=== PATIENT | female | born 1990 | race American Indian/Alaskan Native ===

== ENCOUNTER 2017-12-13 07:25 | Emergency (ER) | payer MEDICAID, OTHER ==
[2017-12-13 07:40] VITALS: BP 115/70
[2017-12-13] MEDS ORDERED: ASPIRIN PO ONE (07:40)
[2017-12-13 08:24] LABS: BUN/Creatinine Ratio 17; Blood Urea Nitrogen 12 mg/dL (7-17); Calcium 9.8 mg/dL (8.4-10.2); Hemolysis Index 7
[2017-12-13 08:37] LABS: Basophils # (Auto) 0.2 K/mm3 (0.0-0.1); Basophils % (Auto) 1.1 % (0.0-1.8); Eosinophils # (Auto) 0.1 K/mm3 (0.0-0.4); Eosinophils % (Auto) 0.8 % (0.0-4.3); Hematocrit 36.9 % (30.3-42.9); Hemoglobin 11.8 gm/dl (10.1-14.3); Lymphocytes % (Auto) 14.6 % (13.4-35.0); Mean Corpuscular HGB Conc 32 % (30-34); Mean Corpuscular Hemoglobin 29 pg (28-32); Mean Corpuscular Volume 90 fl (79-97); Monocytes % (Auto) 7.5 % (0.0-7.3); Platelet Count 311 K/mm3 (140-440); Red Blood Count 4.11 M/mm3 (3.65-5.03); Red Cell Distribution Width 13.4 % (13.2-15.2)
--- NOTE | 2017-12-13 10:50 | Emergency Department Report ---
ED Chest Pain HPI - General Chief Complaint: Chest Pain Stated Complaint: CHEST PAIN Time Seen by Provider: 12/13/17 10:39 Source: patient Mode of arrival: Ambulatory Limitations: No Limitations - History of Present Illness Initial Comments: Ms. Barron is a 27 yo who is 7 weeks . Estimated due date 2018. She has had 2 days of intermittent chest pain and right-sided with shortness of breath. Pain is worse when she takes a deep breath. She has taken the progesterone for the past several weeks due to lower levels. Clementina seems to be intermittent. Denies cough. Denies fever. Denies leg pain. MD Complaint: chest pain -: Gradual, days(s) (2) Onset: during rest, other (worse with inspiration ) Pain Location: right chest Pain Radiation: none Severity: mild Quality: sharp Consistency: intermittent - Related Data Home Medications Medication Instructions Recorded Confirmed Last Taken Albuterol Sulfate [Ventolin HFA] 2 puff IH Q4H PRN 04/06/14 04/15/14 04/06/14 Loratadine [Claritin] 10 mg PO DAILY 04/06/14 04/15/14 04/06/14 Previous Rx's Medication Instructions Recorded Last Taken Type Colchicine [Colcrys] 0.6 mg PO BID #20 tab 04/17/14 Unknown Rx Allergies Allergy/AdvReac Type Severity Reaction Status Date / Time No Known Allergies Allergy Verified 04/06/14 20:29 Heart Score - HEART Score History: Slightly suspicious EKG: Normal Age: < 45 Risk factors: No known risk factors Troponin: < normal limit HEART Score: 0 ED Review of Systems ROS: Stated complaint: CHEST PAIN Other details as noted in HPI Comment: All other systems reviewed and negative Constitutional: denies: chills, fever Eyes: denies: eye pain, eye discharge, vision change ENT: denies: ear pain, throat pain Respiratory: denies: cough, shortness of breath, wheezing Cardiovascular: chest pain. denies: palpitations Endocrine: no symptoms reported Gastrointestinal: denies: abdominal pain, nausea, diarrhea Musculoskeletal: denies: back pain Neurological: denies: headache ED Past Medical Hx - Past Medical History Previous Medical History?: Yes Hx Congestive Heart Failure: No Hx Diabetes: No Hx Asthma: No Hx COPD: No Additional medical history: pericarditis, childbirth, ectopic - Surgical History Past Surgical History?: Yes Additional Surgical History: csection - Social History Smoking Status: Never Smoker Substance Use Type: Prescribed - Medications Home Medications: Home Medications Medication Instructions Recorded Confirmed Last Taken Type Albuterol Sulfate [Ventolin HFA] 2 puff IH Q4H PRN 04/06/14 04/15/14 04/06/14 History Loratadine [Claritin] 10 mg PO DAILY 04/06/14 04/15/14 04/06/14 History Colchicine [Colcrys] 0.6 mg PO BID #20 tab 04/17/14 Unknown Rx ED Physical Exam - General Limitations: No Limitations General appearance: alert, in no apparent distress - Head Head exam: Present: atraumatic, normocephalic - Eye Eye exam: Present: normal appearance - ENT ENT exam: Present: mucous membranes moist - Neck Neck exam: Present: normal inspection. Absent: tenderness, meningismus - Respiratory Respiratory exam: Present: normal lung sounds bilaterally. Absent: respiratory distress, wheezes, rales, rhonchi - Cardiovascular Cardiovascular Exam: Present: regular rate, normal rhythm, normal heart sounds. Absent: systolic murmur, diastolic murmur, rubs, gallop - GI/Abdominal GI/Abdominal exam: Present: soft, normal bowel sounds. Absent: distended, tenderness, guarding, rebound - Extremities Exam Extremities exam: Present: normal inspection - Back Exam Back exam: Present: normal inspection - Neurological Exam Neurological exam: Present: alert, oriented X3 - Psychiatric Psychiatric exam: Present: normal affect, normal mood - Skin Skin exam: Present: warm, dry, intact, normal color. Absent: rash ED Course Vital Signs 12/13/17 07:37 Temperature 98.7 F Pulse Rate 89 Respiratory 18 Rate Blood Pressure 115/70 O2 Sat by Pulse 99 Oximetry JADON score - Jadon Score Age > 65: (0) No Aspirin use within the Past 7 Days: (0) No 3 or more CAD Risk Factors: (0) No 2 or more Angina events in past 24 hrs: (0) No Known CAD with more than 50% Stenosis: (0) No Elevated Cardiac Markers: (0) No ST Deviation Greater than 0.5mm: (0) No JADON Score: 0 ED Medical Decision Making - Lab Data Result diagrams: 12/13/17 07:42 12/13/17 07:42 Laboratory Results - last 24 hr 12/13/17 12/13/17 07:42 07:42 WBC 13.4 H RBC 4.11 Hgb 11.8 Hct 36.9 MCV 90 MCH 29 MCHC 32 RDW 13.4 Plt Count 311 Lymph % (Auto) 14.6 [place] % (Auto) 7.5 H Eos % (Auto) 0.8 Baso % (Auto) 1.1 Lymph # 2.0 [place] # 1.0 H Eos # 0.1 Baso # 0.2 H Seg Neutrophils % 76.0 H Seg Neutrophils # 10.2 H Sodium 135 L Potassium 4.7 Chloride 102.3 Carbon Dioxide 24 Anion Gap 13 BUN 12 Creatinine 0.7 Estimated GFR > 60 BUN/Creatinine Ratio 17 Glucose 95 Calcium 9.8 Troponin T < 0.010 Vital Signs - 24 hr 12/13/17 07:37 Temperature 98.7 F Pulse Rate 89 Respiratory 18 Rate Blood Pressure 115/70 O2 Sat by Pulse 99 Oximetry - EKG Data 12/13/17 10:48 NSR nl rate nl axis nl intervals no ST-T signs of ischemia no ST elevation rate 75 bpm no signs of pericarditis no ST elevation no signs of heart strain - Medical Decision Making Ms. Barger is a 27-year-old female who presents with intermittent right sided chest pain. Patient has normal EKG. Heart rate 75 beats a minute on EKG which is quite normal in . No signs of heart strain. No signs of pericarditis. I do not suspect pulmonary embolism. I do not suspect pneumothorax. I do not suspect pericarditis. I do not suspect pneumonia. Patient will take Tylenol and apply heat for possible chest wall pain. She understands to return to the ER if she has worsening symptoms. Critical care attestation.: If time is entered above; I have spent that time in minutes in the direct care of this critically ill patient, excluding procedure time. ED Disposition Clinical Impression: Chest pain, Disposition: DC-01 TO HOME OR SELFCARE Is pt being admited?: No Does the pt Need Aspirin: No Condition: Stable Instructions: Chest Pain (ED) Referrals: PRIMARY CARE, [Primary Care Provider] - 3-5 Days Forms: Work/School Release Form(ED), Accompanied Note Time of Disposition: 10:50
== END 2017-12-13 11:05 | disposition home or self-care (01) ==
LOC: ED 07:25
DX: O26.891 Other specified pregnancy related conditions, first trimester (principal); O99.511 Diseases of the respiratory system complicating pregnancy, first trimester; R06.02 Shortness of breath; Z3A.01 Less than 8 weeks gestation of pregnancy
CPT/HCPCS: 36415; 80048; 84484; 85025; 93005; 93010